=== PATIENT | male | born 2000 | race Caucasian/White ===

== ENCOUNTER 2020-04-25 01:32 | Emergency (ER) | payer BC ==
[~2020-04-25] VITALS: Ht 182.9 cm; Wt 73.0 kg
[2020-04-25] MEDS ORDERED: FLUORESCEIN SODIUM 1MG/STRIP BOTHEYE ONE (02:15)
[2020-04-25] MEDS ORDERED: TETRACAINE 0.5% OPHTH DROPS 4ML BOTHEYE ONE (02:15)
[2020-04-25 02:44] VITALS: BP 119/67
== END 2020-04-25 03:20 | disposition home or self-care (01) ==
LOC: ER 01:32
DX: H10.33 Unspecified acute conjunctivitis, bilateral (principal)
CPT/HCPCS: 99283